=== PATIENT | female | born 1955 | race Caucasian/White ===

== ENCOUNTER 2017-03-07 10:44 | Emergency (ER) | payer OTHER ==
[~2017-03-07 10:44] MED LIST: ACET325T51 PO; ASCO1TAB12 PO; AZEL50GE5 TP; CALC-1001 PO; DENO120V SUBQ; GLUC-123 PO; HYDR-4003 PO; IBRANCE PO; LETR2.5T4 PO; LORA10CA PO; MELA1TAB21 PO; MULT-426 PO; OMPR20CCR PO; OXYC5TAB72 PO; RANI300C PO; SENN25TA8 PO; TRIA10.8 NS; VIT1CAPS8 PO; Vit D PO; [UNRECOGNIZED DRUG - CODE] PO
[2017-03-07 10:45] VITALS: BP 131/81; PULSE 114; RESP 18; O2SAT 99
--- NOTE | 2017-03-07 10:50 | ED.REPORT ---
HPI-General Illness Date of Service Mar 07, 2017 ED Provider: Jessica Tinsley MD The pt is a 61 y/o female w/ a hx of metastatic breast cancer presenting to the ED complaining of shakiness onset earlier this morning. She is also experiencing SOB, back pain, R rib pain, L axillary pain, L groin pain, and a chronic cough which the patient attributes to the nodules in her lungs. Denies CVA tenderness. The patient had a UA taken yesterday due to a suspected UTI but has not started any antibiotics. She uses a lot of Tylenol for pain relief. Nursing Notes Stated Complaint: SOB, CHILLS Chief Complaint: Shakiness Nursing Notes Reviewed: Yes Allergies: Coded Allergies: doxorubicin (Verified Allergy, Severe, ANAPHYLAXIS, 11/23/14) Uncoded Allergies: TAPES - SENSITIVE (Adverse Reaction, Severe, BLISTERS, RASH, 04/27/13) Scheduled ([Ibrance]) 100 MG PO DAILY 21 DAYS ON 7 OFF STARTED 12/03/14 ALTERNATE W/ 125MG ([Vit D]) 2,800 IU PO DAILY Ascorbate Calcium/Bioflavonoid (Raquel-C 500 mg Tablet) 1 Each Tablet 1 EACH PO every oth day Azelaic Acid (Finacea) 50 Gm Gel..gram. 50 GM TP DAILY Calcium Carbonate (Calcium Carbonate) 300 Mg Calcium (750 Mg) Tab.chew 600 MG PO DAILY Cimetidine (Cimetidine) 400 Mg Tablet 200-400 MG PO DAILY Denosumab (Xgeva) 120 Mg/1.7 Ml Vial 120 MG SUBQ monthly Gluc/Carlton-MSM#2/C/D3/Bennett/Born (Qzdhembxnc-Edxqqiuywsn-UGG Tab) 1 Each Tablet 1 EACH PO DAILY Letrozole (Letrozole) 2.5 Mg Tablet 2.5 MG PO DAILY Levofloxacin (Levofloxacin) 500 Mg Tablet 500 MG PO DAILY Loratadine (Claritin) 10 Mg Capsule 10 MG PO DAILY Melatonin/Pyridoxine HCl (B6) (Melatonin 10 mg Tablet) 1 Each Tab.mphase 1 EACH PO HS Multivitamin with Minerals (One Daily 50 Plus) 1 Each Tablet 1 EACH PO DAILY Omeprazole (Prilosec) 20 Mg Capcr 20 MG PO BID Ranitidine (Ranitidine) 300 Mg Capsule 300 MG PO HS Triamcinolone Acetonide (Nasacort) 10.8 Ml Mchenry 10.8 ML NS DAILY Vit C/Vit E/Lutein/Min/Goldfield-3 (Ocuvite Softgel) 1 Each Capsule 1 EACH PO every oth day Scheduled PRN Acetaminophen (Acetaminophen) 325 Mg Tablet 2,000-3,000 MG PO DAILY PRN PRN For Pain Hydrocodone-Acetaminophen 5-325 mg (Hydrocodone-Acetaminophen 5-325 mg) 1 Each Tablet 0.5 TABLET PO Q4H PRN PRN For Pain Sennosides (Senna Laxative) 25 Mg Tablet 25 MG PO DIRECTED PRN PRN For Constipation oxyCODONE (oxyCODONE) 5 Mg Tablet 5 MG PO DIRECTED PRN PRN For Pain General Time Seen by MD: 10:50 Chief Complaint Other (Shakiness ) Hx Obtained From: Patient Arrived By: Walk-in Sudden in Onset?: Yes Onset Occurred: 1 - 4 hours ago Symptom Duration: Since onset Recent Healthcare: No recent hospitalization, Recent doctor visit Similar Sx Previous: No Past Medical History Past Medical History Metastatic breast cancer Past Surgical History None reported Smoking History Unknown if Ever Smoker Social History The pt is a retired nurse. Other Social History: Good social support, Ambulatory Status Independent Review of Systems R rib pain; L groin pain; L axillary pain; Chronic cough which the pt says is due to the nodules in her lungs; Full Review of Systems Respiratory: Reports: Shortness of breath Female: Denies: Flank pain Musculoskeletal: Reports: Back pain Neurologic: Reports: Shaking Complete sys rev & neg: except as marked. Physical Exam Vital Signs Vital Signs Date Time Temp Pulse Resp B/P Pulse Ox O2 Delivery O2 Flow Rate FiO2 03/07/17 14:55 36.8 80 20 109/67 98 Room Air 03/07/17 12:51 37 107 20 112/62 98 Room Air 03/07/17 10:45 36.8 114 18 131/81 99 Room Air Initial VS: Reviewed General/Constitutional: Well-developed, Well-nourished Head / Eyes: Atraumatic, Normocephalic, PERRL ENT: Mucous membranes moist, Conjunctiva normal, No scleral icterus Neck: Supple, Non-tender, Full range of motion Respiratory: Breath sounds normal, Clear to auscultation, No respiratory distress Extremities: Vascular intact, Neuro intact, No swelling, No tenderness Skin: Warm, Dry, No cyanosis Neurologic: Alert, Oriented, Nonfocal Psychiatric: Mood/affect normal, Behavior normal, Normal thought content Cardiovascular: Regular rhythm, Heart sounds NL Heart Rate / Rhythm: Positive: Tachycardia Interpretation & Diagnostics Interpretation & Diagnostics: Microbiology TONG CULT URINE Preliminary 03/07/17-820 PRELIMINARY ID GRAM NEGATIVE RYANN ID AND SENS TO FOLLOW COLONY COUNT/QUANTITY >100,000 CFU/ml Lab Results Interpretation Result Diagram: 03/07/17 1110 03/07/17 1110 Test 03/07/17 11:10 03/07/17 11:12 White Blood Count 2.0th/mm3 (3.8-10.1) Red Blood Count 3.68mil/mm3 (3.90-5.20) Hemoglobin 12.3g/dL (12.0-15.6) Hematocrit 35.4% (35.0-46.0) Mean Corpuscular Volume 96.2fL (81-100) Mean Corpuscular Hemoglobin 33.4pg (27.0-35.0) Mean Corpuscular Hemoglobin Concent 34.7% (32.0-37.0) Red Cell Distribution Width 14.4% (12.3-15.4) Platelet Count 140bil/L (150-400) Neutrophils (%) (Auto) 84.1% (40-74) Lymphocytes (%) (Auto) 13.4% (14-46) Monocytes (%) (Auto) 1.0% (4-12) Eosinophils (%) (Auto) 0.5% (0-5) Basophils (%) (Auto) 0.5% (0-3) Sodium Level 129mEq/L (134-144) Potassium Level 3.9mEq/L (3.5-5.2) Chloride Level 94mEq/L (97-108) Carbon Dioxide Level 21mmol/L (18-29) Blood Urea Nitrogen 6mg/dL (8-27) Creatinine 0.71mg/dL (0.57-1.00) Estimat Glomerular Filtration Rate 120mL/min (>59) Glucose Level 105mg/dL (60-99) Lactic Acid Level 1.0mmol/L (0.4-2.0) Calcium Level 9.1mg/dL (8.5-10.1) Total Bilirubin 0.5mg/dL (0.0-1.2) Aspartate Amino Transf (AST/SGOT) 28U/L (0-50) Alanine Aminotransferase (ALT/SGPT) 24U/L (0-32) Alkaline Phosphatase 47U/L (25-165) Total Protein 7.6g/dL (6.4-8.4) Albumin 4.4g/dL (3.4-5.0) Urine Color Straw (YELLOW) Urine Appearance Hazy (CLEAR,HAZY) Urine pH 6.0 (5.0-8.0) Urine Specific Hitchcock 1.005 (1.003-1.035) Urine Protein Negativemg/dL (NEG,TRACE) Urine Glucose (UA) Negativemg/dL (NEGATIVE) Urine Ketones Negativemg/dL (NEGATIVE) Urine Occult Blood Small (NEGATIVE) Urine Nitrite Negative (NEGATIVE) Urine Bilirubin Negative (NEGATIVE) Urine Urobilinogen Normalmg/dL (NORMAL) Urine Leukocyte Esterase Small (NEGATIVE) Urine RBC 0-2/hpf (0-2) Urine WBC 0-5/hpf (0-5) Urine Epithelial Cells Occasional/hpf (NONE-MOD) Urine Crystals None seen (NONE SEEN) Urine Bacteria Many/hpf (NONE-FEW) Urine Hyaline Casts None/lpf (NONE) Urine Granular Casts None seen (NONE SEEN) Urine Waxy Casts None seen (NONE SEEN) Urine Red Blood Cell Casts None seen (NONE SEEN) Urine White Blood Cell Casts None seen (NONE SEEN) Urine Mucus None seen (None Seen) Urine Trichomonas None seen (NONE SEEN) Urine Yeast None (NONE SEEN) Urinalysis Comment None Urine Culture Reflexed Indicated Hold Urine Received (Received) X-Ray Chest Interpretation Chest Xray Interpretation: IMPRESSION: 1. Stable chest. No acute cardiopulmonary process is suspected. 2. Mild basilar scarring is present. The patient's known pulmonary nodules are not clearly evident. Dictated by: Ezequiel Diaz M.D. on 03/07/2017 at 13:42 Approved by: Ezequiel Diaz M.D. on 03/07/2017 at 13:44 View: Portable, 1 view Interpretation / Wet Read by: Interpret - Radiologist Re-Eval/Medical Decision Med Decision/Clinical Course 61-year-old woman with metastatic breast cancer presents with UTI symptoms. Culture was done 2 days ago is currently growing out gram-negative rods sensitivity and IV is not yet available. Continues to have some cough and left-sided rib pain from her known metastatic lesions. No worsening chest pain no worsening dyspnea. She was developing fevers and chills today but lab work does not suggest sepsis. She was slightly tachycardic with her fever and this is improved with a liter of fluid and Tylenol She will be treated for her UTI and discharged home. No evidence for sepsis or overwhelming infection. Source of Hx: Old records Counseled Regarding: Diagnosis, Lab results, Need for follow-up, When/why to return to ED Discharge & Departure Primary Impression: Bacterial UTI Additional Impression: Infection due to Gram-negative bacteria Disposition: Home Discharge Condition All VS Reviewed: Yes Condition: Stable Additional Instructions: Your urine from the other day is showing a bladder infection(UTI) with gram negative rods. This is likely E coli (the usual type of bacteria to cause bladder infections) but we will have identification by tomorrow. Your labs do NOT suggest widespread infection or sepsis. Your sodium level is a little low, but close to your usual low baseline. I have given you Ceftriaxone IV in the ER and will send you home with a prescription for levaquin to take for the next 10 days. I've electronically sent your [facility] to [facility] today If you are getting worse, please return to the ER I hope you feel better soon! Referrals: Ernesto Sheriff MD (PCP) Scribe Attestation Portions of this note were transcribed by Faraz Stoner. I, Dr. Tinsley personally performed the history, physical exam and medical decision-making; I reviewed and confirmed the accuracy of the information in the transcribed note. copies to: Ernesto Sheriff MD, Shawna L MD Mar 07, 2017 10:50 Faraz Stoner Mar 07, 2017 11:54
[2017-03-07 11:30] LABS: BASOPHILS % (AUTO) 0.5 % (0-3); EOSINOPHILS % (AUTO) 0.5 % (0-5); Mean Corpuscular Hemoglobin 33.4 pg (27.0-35.0); Mean Corpuscular Volume 96.2 fL (81-100); NEUTROPHILS % (AUTO) 84.1 % (40-74); Platelet Count 140 bil/L (150-400)
[2017-03-07 12:51] VITALS: BP 112/62; PULSE 107; RESP 20; O2SAT 98
[2017-03-07 13:21] LABS: APPEARANCE,URINE HAZY (CLEAR,HAZY); COLOR,URINE STRAW (YELLOW); OCCULT BLOOD,URINE SMALL (NEGATIVE); UROBILINOGEN,URINE NORMAL (NORMAL)
[2017-03-07] MEDS ORDERED: 0.9% Sodium Chloride 1,000 ML IV ONE (14:00)
[2017-03-07] MEDS ORDERED: cefTRIAXone Inj 2,000 MG in Dextrose 5% Minibag Plus 50 ML IV ONE (14:00)
--- NOTE | 2017-03-07 14:45 | DRSVH ---
PROCEDURE: X-RAY CHEST ONE VIEW, PORTABLE ([id number]) INDICATIONS: cough TECHNIQUE: One view of the chest was acquired. COMPARISON: [facility], CT, CT NECK CHEST W CON, 01/15/2017, 13:05. [facility], CT, CT CHEST W CON, 10/16/2016, 9:15. [facility], CR, XR CHEST 2VW, 06/06/2016, 16:04 . FINDINGS: Surgical changes and devices: Postoperative changes of the left axilla and left chest are noted. Lungs and pleura: Mild increased density is evident within the left lung base, probably representing mild interstitial thickening/scarring. Nodules within the right lung are not well discernible on con ventional x-ray and much better appreciated on the CT. No lobar consolidation, large effusion, or pn eumothorax is evident. Mediastinum: Mediastinal contours appear normal. Heart size is normal. Bones and chest wall: No suspicious bony lesions. Overlying soft tissues appear unremarkable. IMPRESSION: 1. Stable chest. No acute cardiopulmonary process is suspected. 2. Mild basilar scarring is present. The patient's known pulmonary nodules are not clearly evident. Dictated by: Ezequiel Diaz M.D. on 03/07/2017 at 13:42 Approved by: Ezequiel Diaz M.D. on 03/07/2017 at 13:44
[2017-03-07 14:55] VITALS: BP 109/67; PULSE 80; RESP 20; O2SAT 98
[2017-03-07] MEDS ORDERED: LEVO500T79 PO (15:33)
== END 2017-03-07 16:02 | disposition home or self-care (01) ==
LOC: SED 10:44
DX: N39.0 Urinary tract infection, site not specified (principal); B96.20 Unspecified Escherichia coli [E. coli] as the cause of diseases classified elsewhere; R06.02 Shortness of breath; M54.9 Dorsalgia, unspecified; R07.81 Pleurodynia; M79.622 Pain in left upper arm; R10.32 Left lower quadrant pain; R05 Cough; C79.9 Secondary malignant neoplasm of unspecified site; C50.919 Malignant neoplasm of unspecified site of unspecified female breast; Z88.8 Allergy status to other drugs, medicaments and biological substances
CPT/HCPCS: 36415; 71010; 80053; 81000; 83605; 85025; 87077; 87086; 87088; 87186; 96361; 96365; 99285; J0696; J7030